=== PATIENT | female | born 1975 | race Hispanic/Latino ===

== ENCOUNTER 2016-11-19 04:34 | Emergency (ER) | payer SELFPAY ==
[2016-11-19 04:44] VITALS: BP 130/82
--- NOTE | 2016-11-19 05:11 | XRay Report ---
FINAL REPORT PROCEDURE: XR FOOT 2V LT TECHNIQUE: LEFT forearm radiographs, AP and lateral views. CPT 56983 HISTORY: left plantar foot pain COMPARISON: No prior studies are available for comparison. FINDINGS: Fracture (s) and/or Dislocation(s): None . Joint space(s): Normal . Soft tissues: Normal . Bone mineralization: Normal . Foreign bodies: None . IMPRESSION: Normal Examination
--- NOTE | 2016-11-19 07:57 | Emergency Department Report ---
Blank Doc - Documentation Documentation: When I entered the examination room the patient was not in the exam room. 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 As per respiratory therapist Sarah Miss Luque went home after her shift. I called the number listed under patient demographics and left a message requesting that Miss Luque will return to the ED to be clinically examined and for her x-ray results. I informed charge nurse Anahi of this scenario. Patient eloped before clinical examination.
== END 2016-11-19 07:20 | disposition left against medical advice (07) ==
LOC: ED 04:34
DX: M79.672 Pain in left foot (principal); Z53.21 Procedure and treatment not carried out due to patient leaving prior to being seen by health care provider

== ENCOUNTER 2017-06-02 07:50 | Outpatient (CLI) | payer BC ==
--- NOTE | 2017-06-02 15:41 | Mammography Report ---
BILATERAL DIGITAL SCREENING MAMMOGRAM with CAD: 06/02/17 07:50:00 CLINICAL: Routine screening. COMPARISON:None available. FINDINGS: The breasts are heterogeneously dense, which may obscure small masses. No mass, architectural distortion or suspicious calcifications. IMPRESSION: No mammographic evidence of malignancy. BI-RADS CATEGORY: 1 - - Negative RECOMMENDATION: Routine mammographic screening in one year. COMMENT: Patient follow-up letters are generated by our [employer] application.
== END 2017-06-02 07:51 | disposition home or self-care (01) ==
LOC: MAMMO 07:50
PROVIDERS: ATTEND Family Medicine
DX: Z12.31 Encounter for screening mammogram for malignant neoplasm of breast (principal)
CPT/HCPCS: 77067

== ENCOUNTER 2018-05-16 18:56 | Emergency (ER) | payer BC ==
[2018-05-16 19:12] VITALS: BP 118/66
--- NOTE | 2018-05-16 19:18 | Emergency Department Report ---
- General Chief Complaint: Upper Respiratory Infection Stated Complaint: FLU/POSS STREP Time Seen by Provider: 05/16/18 19:18 Source: patient Mode of arrival: Ambulatory Limitations: No Limitations - History of Present Illness Initial Comments: This is a 43-year-old female nontoxic, well nourished in appearance, no acute signs of distress presents to the ED with c/o of productive cough, fever, chills, body aches, rhinorrhea, nasal congestion x1 week. Patient describes productive cough as yellow mucus production. Patient stated that son has similar symptoms. Patient denies any recent travels, long car, recent hospital stays. Patient denies any calf pain or calf tenderness. Patient denies any chest pain, short of breath, fever, chills, nausea, vomiting, hemoptysis, num bness, tingling, headache or stiff neck. Patient stated allergies to Sulfa with no PMH. MD Complaint: cough, rhinorrhea, nasal congestion, other (body aches) -: week(s) (1) Severity: mild Severity scale (0 -10): 8 Quality: aching Consistency: constant Improves With: nothing Worsens With: nothing Associated Symptoms: denies other symptoms, rhinorrhea, nasal congestion, cough. denies: fever, chills, myalgias, diaphoresis, headache, sore throat, stiff neck, chest pain, abdominal pain, nausea, vomiting, diarrhea, dysuria, rash, confusion, right sweats, weight loss, epistaxis, hoarseness, ear pain Treatments Prior to Arrival: none - Related Data Previous Rx's Medication Instructions Recorded Last Taken Type Azithromycin [Zithromax Z-GERARDO] 250 mg PO DAILY #6 tablet 05/16/18 Unknown Rx Benzonatate [Tessalon Perle] 100 mg PO Q6H PRN #20 capsule 05/16/18 Unknown Rx Ibuprofen [Motrin] 600 mg PO Q8H PRN #20 tablet 05/16/18 Unknown Rx Prednisone [predniSONE 10 mg 10 mg PO .TAPER #1 tab.ds.pk 05/16/18 Unknown Rx (6-Day Pack, 21 Tabs)] Allergies Allergy/AdvReac Type Severity Reaction Status Date / Time Sulfa (Sulfonamide Allergy Headache Verified 11/19/16 04:45 Antibiotics) ED Review of Systems ROS: Stated complaint: FLU/POSS STREP Other details as noted in HPI Constitutional: denies: chills, fever Eyes: denies: eye pain, eye discharge, vision change ENT: congestion. denies: ear pain, throat pain Respiratory: cough. denies: shortness of breath, wheezing Cardiovascular: denies: chest pain, palpitations Endocrine: no symptoms reported Gastrointestinal: denies: abdominal pain, nausea, diarrhea Genitourinary: denies: urgency, dysuria, discharge Musculoskeletal: denies: back pain, joint swelling, arthralgia Skin: denies: rash, lesions Neurological: denies: headache, weakness, paresthesias Psychiatric: denies: anxiety, depression Hematological/Lymphatic: denies: easy bleeding, easy bruising ED Past Medical Hx - Past Medical History Previous Medical History?: No - Surgical History Past Surgical History?: No - Social History Smoking Status: Current Every Day Smoker Substance Use Type: None - Medications Home Medications: Home Medications Medication Instructions Recorded Confirmed Last Taken Type Azithromycin [Zithromax Z-GERARDO] 250 mg PO DAILY #6 tablet 05/16/18 Unknown Rx Benzonatate [Tessalon Perle] 100 mg PO Q6H PRN #20 capsule 05/16/18 Unknown Rx Ibuprofen [Motrin] 600 mg PO Q8H PRN #20 tablet 05/16/18 Unknown Rx Prednisone [predniSONE 10 mg 10 mg PO .TAPER #1 tab.ds.pk 05/16/18 Unknown Rx (6-Day Pack, 21 Tabs)] ED Physical Exam - General Limitations: No Limitations General appearance: alert, in no apparent distress - Head Head exam: Present: atraumatic, normocephalic - Eye Eye exam: Present: normal appearance - ENT ENT exam: Present: normal exam, normal orophraynx - Neck Neck exam: Present: normal inspection, full ROM. Absent: tenderness, meningismus - Respiratory Respiratory exam: Present: normal lung sounds bilaterally. Absent: respiratory distress, wheezes, rales, rhonchi, stridor, chest wall tenderness, accessory muscle use, decreased breath sounds, prolonged expiratory - Cardiovascular Cardiovascular Exam: Present: regular rate, normal rhythm, normal heart sounds. Absent: irregular rhythm, systolic murmur, diastolic murmur, rubs, gallop - Extremities Exam Extremities exam: Present: normal inspection, full ROM - Back Exam Back exam: Present: normal inspection, full ROM - Neurological Exam Neurological exam: Present: alert, oriented X3 - Psychiatric Psychiatric exam: Present: normal affect, normal mood - Skin Skin exam: Present: warm, dry, intact, normal color. Absent: rash ED Course Vital Signs 05/16/18 19:10 Temperature 98.3 F Pulse Rate 92 H Respiratory 18 Rate Blood Pressure 118/66 O2 Sat by Pulse 100 Oximetry - Reevaluation(s) Reevaluation #1: 05/16/18 20:11 Patient is speaking in full sentences with no signs of distress noted. ED Medical Decision Making - Medical Decision Making This is a 43-year-old female that presents with bronchitis. Patient is stable and was examined by me. Chest x-ray has been obtained and dictated by radiologist with normal exam. Patient is notified of x-ray results with no questions noted. Negative flu swab. Due to patient having symptoms of upper respiratory infection and worsening I will treat patient empirically with zpak. Patient was instructed to increase hydration, rest and take Motrin for fever episodes. Patient received motrin and tesslone perrls in the ED. Vitals stable. Patient is nonfebrile and normal heart rate. Patient was instructed Follow-up with a primary care doctor in 3-5 days or if symptoms worsen and continue return to emergency room as soon as possible. At time time of discharge, the patient does not seem toxic or ill in appearance. No acute signs of distress noted. Patient agrees to discharge treatment plan of care. No further questions noted by the patient. Critical care attestation.: If time is entered above; I have spent that time in minutes in the direct care of this critically ill patient, excluding procedure time. ED Disposition Clinical Impression: Bronchitis Disposition: [id number] TO HOME OR SELFCARE Is pt being admited?: No Does the pt Need Aspirin: No Condition: Stable Instructions: Acute Bronchitis (ED) Additional Instructions: Follow-up with a primary care doctor in 3-5 days or if symptoms worsen and continue return to emergency room as soon as possible. Prescriptions: Azithromycin [Zithromax Z-GERARDO] 250 mg PO DAILY #6 tablet Benzonatate [Tessalon Perle] 100 mg PO Q6H PRN #20 capsule PRN Reason: Cough Ibuprofen [Motrin] 600 mg PO Q8H PRN #20 tablet PRN Reason: Pain/fever Prednisone [predniSONE 10 mg (6-Day Pack, 21 Tabs)] 10 mg PO .TAPER #1 tab.ds.pk Referrals: PRIMARY CARE, [Primary Care Provider] - 3-5 Days COOPER STRONG MD [Staff Physician] - 3-[address] [facility] [Outside] - 3-5 Days [facility] [Outside] - 3-5 Days Forms: Work/School Release Form(ED)
[2018-05-16] MEDS ORDERED: TESSALON PERLES PO ONE (19:28)
[2018-05-16] MEDS ORDERED: MOTRIN PO ONE (19:28)
--- NOTE | 2018-05-16 21:36 | XRay Report ---
FINAL REPORT EXAM: XR CHEST ROUTINE 2V HISTORY: cough TECHNIQUE: Two view chest PA and lateral PRIORS: None. FINDINGS: Cardiac and mediastinal contours are unremarkable. No focal pulmonary infiltrate is identified. No pleural fluid collection seen. Pulmonary vasculature is unremarkable. IMPRESSION: Negative two-view chest
== END 2018-05-16 20:44 | disposition home or self-care (01) ==
LOC: ED 18:56
DX: J40 Bronchitis, not specified as acute or chronic (principal); F17.200 Nicotine dependence, unspecified, uncomplicated; Z88.2 Allergy status to sulfonamides
CPT/HCPCS: 71046; 87400; 99283

== ENCOUNTER 2019-02-24 19:32 | Emergency (ER) | payer OTHER, BC ==
--- NOTE | 2019-02-24 19:37 | Emergency Department Report ---
Blank Doc - Documentation Documentation: 43-year-old female that presents with right knee pain s/p injury at work. This initial assessment/diagnostic orders/clinical plan/treatment(s) is/are subject to change based on patient's health status, clinical progression and re- assessment by fellow clinical providers in the ED. Further treatment and workup at subsequent clinical providers discretion. Patient/guardians urged not to elope from the ED as their condition may be serious if not clinically assessed and managed. Initial orders include: 1- Patient sent to [facility] for further evaluation and treatment 2- xray of knee
[2019-02-24 19:43] VITALS: BP 132/66
[2019-02-24] MEDS ORDERED: IBUPROFEN 600 MG TAB PO ONE (19:54)
[2019-02-24] MEDS ORDERED: ACETAMINOPHEN 500 MG TAB PO ONE (19:54)
--- NOTE | 2019-02-24 21:10 | Emergency Department Report ---
ED Extremity Problem HPI - General Chief complaint: Extremity Injury, Lower Stated complaint: WORK RELATED INJURY RT KNEE Time Seen by Provider: 02/24/19 19:36 Source: patient Mode of arrival: Ambulatory Limitations: No Limitations - History of Present Illness Initial comments: Patient is a 43-year-old white female with no past medical history presents to the ED with complaint of acute onset persistent severe right knee pain after she twisted the right knee when pushing a computer cowel 3 days ago. Patient states that in the process of twisting she heard a "pop"sound. Patient states that since that incident her right knee pain is worsened especially in the last 3 days. Patient denies fall, traumatic injury, numbness and tingling or weakness of right leg, hip pain, dizziness, chest pain or shortness of breath. MD Complaint: extremity pain (right), joint swelling (right knee), joint paint (right knee) -: Sudden, days(s) (3) Location: right, lower extremity (right knee), knee -: Yes arthralgia Radiation: none Severity scale (0 -10): 8 Quality: aching, sharp Consistency: constant Improves with: rest Worsens with: weight bearing, walking, palpation Associated Symptoms: denies other symptoms - Related Data Previous Rx's Medication Instructions Recorded Last Taken Type Azithromycin [Zithromax Z-GERARDO] 250 mg PO DAILY #6 tablet 05/16/18 Unknown Rx Benzonatate [Tessalon Perle] 100 mg PO Q6H PRN #20 capsule 05/16/18 Unknown Rx Prednisone [predniSONE 10 mg 10 mg PO .TAPER #1 tab.ds.pk 05/16/18 Unknown Rx (6-Day Pack, 21 Tabs)] Ibuprofen [Motrin 600 MG tab] 600 mg PO Q8H PRN #20 tablet 02/24/19 Unknown Rx tiZANidine [Zanaflex 4mg TAB] 4 mg PO Q8H PRN #15 tablet 02/24/19 Unknown Rx Allergies Allergy/AdvReac Type Severity Reaction Status Date / Time Sulfa (Sulfonamide Allergy Headache Verified 11/19/16 04:45 Antibiotics) ED Review of Systems ROS: Stated complaint: WORK RELATED INJURY RT KNEE Other details as noted in HPI Constitutional: denies: chills, fever Eyes: denies: eye pain, eye discharge, vision change ENT: denies: ear pain, throat pain Respiratory: denies: cough, shortness of breath, wheezing Cardiovascular: denies: chest pain, palpitations Endocrine: no symptoms reported Gastrointestinal: denies: abdominal pain, nausea, diarrhea Genitourinary: denies: urgency, dysuria, discharge Musculoskeletal: arthralgia (right knee), myalgia. denies: back pain, joint swelling Skin: denies: rash, lesions Neurological: denies: headache, weakness, paresthesias Psychiatric: denies: anxiety, depression Hematological/Lymphatic: denies: easy bleeding, easy bruising ED Past Medical Hx - Past Medical History Previous Medical History?: No - Surgical History Past Surgical History?: No - Social History Smoking Status: Never Smoker Substance Use Type: Alcohol - Medications Home Medications: Home Medications Medication Instructions Recorded Confirmed Last Taken Type Azithromycin [Zithromax Z-GERARDO] 250 mg PO DAILY #6 tablet 05/16/18 Unknown Rx Benzonatate [Tessalon Perle] 100 mg PO Q6H PRN #20 capsule 05/16/18 Unknown Rx Prednisone [predniSONE 10 mg 10 mg PO .TAPER #1 tab.ds.pk 05/16/18 Unknown Rx (6-Day Pack, 21 Tabs)] Ibuprofen [Motrin 600 MG tab] 600 mg PO Q8H PRN #20 tablet 02/24/19 Unknown Rx tiZANidine [Zanaflex 4mg TAB] 4 mg PO Q8H PRN #15 tablet 02/24/19 Unknown Rx ED Physical Exam - General Limitations: No Limitations General appearance: alert, in no apparent distress - Head Head exam: Present: atraumatic, normocephalic, normal inspection - Eye Eye exam: Present: normal appearance, PERRL, EOMI Pupils: Present: normal accommodation - ENT ENT exam: Present: normal exam, normal orophraynx, mucous membranes moist, TM's normal bilaterally, normal external ear exam - Neck Neck exam: Present: normal inspection, full ROM - Respiratory Respiratory exam: Present: normal lung sounds bilaterally. Absent: respiratory distress, wheezes, chest wall tenderness, accessory muscle use, prolonged expiratory - Cardiovascular Cardiovascular Exam: Present: regular rate, normal rhythm, normal heart sounds. Absent: systolic murmur, diastolic murmur, rubs, gallop - GI/Abdominal GI/Abdominal exam: Present: soft, normal bowel sounds. Absent: tenderness, rebound - Extremities Exam Extremities exam: Present: normal inspection, tenderness (palpable right knee tenderness with mild swelling), normal capillary refill, joint swelling - Back Exam Back exam: Present: normal inspection, full ROM. Absent: tenderness, CVA tenderness (R), CVA tenderness (L), muscle spasm, paraspinal tenderness, vertebral tenderness - Neurological Exam Neurological exam: Present: alert, oriented X3, CN II-XII intact, normal gait, reflexes normal - Psychiatric Psychiatric exam: Present: normal affect, normal mood - Skin Skin exam: Present: warm, dry, intact, normal color. Absent: rash ED Course Vital Signs 02/24/19 19:36 Temperature 98.5 F Pulse Rate 88 Respiratory 14 Rate Blood Pressure 132/66 O2 Sat by Pulse 99 Oximetry - Reevaluation(s) Reevaluation #1: 02/24/19 21:13 This is a 43-year-old female who presented to the ED with right knee pain and swelling after twisting the right knee 3 days ago. In the ED, patient is alert and oriented 3, ambulatory but appears to be in pain. Right knee x-ray shows no acute fractures or subluxations. Patient's pain is likely due to ligament injury. Patient was treated for pain in the ED of the right knee was splinted with Radhames wrap. Patient was discharged home on pain medications and muscle rela xants and, and was advised to follow-up with her primary care physician in 3-5 days for reevaluation or return to the ED immediately if symptoms get worse. Patient was also advised to consider following up with the orthopedic surgeon Dr. Perez if her symptoms get worse. ED Medical Decision Making - Radiology Data Radiology results: report reviewed, image reviewed Right knee x-ray shows no acute fractures or subluxations. - Medical Decision Making This is a 43-year-old female who presented to the ED with right knee pain and swelling after twisting the right knee 3 days ago. In the ED, patient is alert and oriented 3, ambulatory but appears to be in pain. Right knee x-ray shows no acute fractures or subluxations. Patient's pain is likely due to ligament injury. Patient was treated for pain in the ED of the right knee was splinted with Radhames wrap. Patient was discharged home on pain medications and muscle relaxants and, and was advised to follow-up with her primary care physician in 3-5 days for reevaluation or return to the ED immediately if symptoms get worse. Patient was also advised to consider following up with the orthopedic surgeon Dr. Perez if her symptoms get worse. - Differential Diagnosis knee fracture; right knee sprain; knee ligament strain Critical care attestation.: If time is entered above; I have spent that time in minutes in the direct care of this critically ill patient, excluding procedure time. ED Disposition Clinical Impression: Sprain of right knee Qualifiers: Encounter type: initial encounter Involved ligament of knee: unspecified ligament Qualified Code(s): S83.91XA - Sprain of unspecified site of right knee, initial encounter Muscle strain of right knee Qualifiers: Encounter type: initial encounter Qualified Code(s): S86.911A - Strain of unspecified muscle(s) and tendon(s) at lower leg level, right leg, initial encounter Disposition: TO HOME OR SELFCARE Is pt being admited?: No Does the pt Need Aspirin: No Condition: Stable Instructions: Muscle Strain (ED), Knee Sprain (ED) Additional Instructions: Take medications with food, drink plenty of fluids and follow-up with your primary care physician in 7-10 days for reevaluation. Return to the ED immediately if symptoms get worse. Consider following up with the orthopedic surgeon Dr. Perez if symptoms get worse. Prescriptions: Ibuprofen [Motrin 600 MG tab] 600 mg PO Q8H PRN #20 tablet PRN Reason: Pain/fever tiZANidine [Zanaflex 4mg TAB] 4 mg PO Q8H PRN #15 tablet PRN Reason: Muscle Spasm Referrals: JAYLEEN LINDSEY MD [Primary Care Provider] - 3-5 Days PATRICIA PEREZ MD [Staff Physician] - 3-5 Days Time of Disposition: 21:05 Print Language: BELARUSIAN
--- NOTE | 2019-02-24 21:22 | XRay Report ---
RIGHT KNEE 3 VIEWS INDICATION / CLINICAL INFORMATION: knee pain. COMPARISON: None available. FINDINGS: No fracture, dislocation or right knee effusion is present. Signer Name: Evan Washington MD Signed: 02/24/2019 9:18 PM Workstation Name: [id number]
== END 2019-02-24 21:32 | disposition home or self-care (01) ==
LOC: ED 19:32
DX: S83.91XA Sprain of unspecified site of right knee, initial encounter (principal); Z79.899 Other long term (current) drug therapy; Z88.2 Allergy status to sulfonamides; X58.XXXA Exposure to other specified factors, initial encounter; Y93.89 Activity, other specified; Y92.89 Other specified places as the place of occurrence of the external cause; Y99.8 Other external cause status
CPT/HCPCS: 99283

== ENCOUNTER 2020-04-03 14:47 | Outpatient (CLI) | payer BC ==
[2020-04-03 15:14] LABS: Basophils % (Auto) 0.5 % (0.0-1.8); Eosinophils # (Auto) 0.2 K/mm3 (0.0-0.4); Hemoglobin 13.3 gm/dl (10.1-14.3); Lymphocytes # (Auto) 1.9 K/mm3 (1.2-5.4); Lymphocytes % (Auto) 21.4 % (13.4-35.0); Mean Corpuscular HGB Conc 33 % (30-34); Mean Corpuscular Volume 92 fl (79-97); Monocytes # (Auto) 0.8 K/mm3 (0.0-0.8); Monocytes % (Auto) 8.5 % (0.0-7.3); Platelet Count 274 K/mm3 (140-440); Red Blood Count 4.37 M/mm3 (3.65-5.03); Red Cell Distribution Width 12.6 % (13.2-15.2)
== END 2020-04-03 14:48 | disposition home or self-care (01) ==
LOC: LAB 14:47
PROVIDERS: ATTEND Obstetrics & Gynecology
DX: N92.0 Excessive and frequent menstruation with regular cycle (principal)
CPT/HCPCS: 36415; 82670; 83001; 84146; 84402; 84443; 85025

== ENCOUNTER 2020-05-01 06:08 | Day surgery (SDC) | payer BC ==
[2020-04-27 08:52] LABS: Hematocrit 38.6 % (30.3-42.9); Hemoglobin 13.4 gm/dl (10.1-14.3); Mean Corpuscular HGB Conc 35 % (30-34); Mean Corpuscular Volume 91 fl (79-97); Platelet Count 236 K/mm3 (140-440); Red Blood Count 4.26 M/mm3 (3.65-5.03); Red Cell Distribution Width 12.9 % (13.2-15.2)
[2020-04-27 09:15] LABS: Blood Urea Nitrogen 10 mg/dL (7-17); Calcium 9.5 mg/dL (8.4-10.2); Hemolysis Index 10
[2020-04-27 09:18] LABS: BUN/Creatinine Ratio 14
--- NOTE | 2020-04-30 03:11 | History and Physical Report ---
History of Present Illness Date of examination: 04/28/20 History of present illness: Patient has been reassessed/reevaluated. H&P has been reviewed. No interval changes. This is a 44 years old who. presents with menstrual disorder. The symptoms began 6-12 months ago. He complains of heavy bleeding, dysmenorrhea, clotting and cramping, but denies irregular menses, mid-cycle spotting, lack of menses, history of ovarian cysts, history of thyroid disease, history of fibroids, history of PCOS, history of bleeding disorder, lightheadedness and fatigue. Menses started at age 13. Interval between menses is 28 days and 30 days. Menstrual flow lasts 7 days. Patient reports that for pain she uses ibuprofen. Patient's work up has included hysterosonogram with a benign endometrial biopsy and revealed intracavity mass possible leiomyoma Vital Signs: Patient Profile: 45 Years Old Female LMP: 04/05/2020 Height: 62 inches Weight: 145 pounds BMI: 26.52 Temp: 97.7 degrees F BP sittin / 70 (left arm) Menstrual History: LMP (date): 04/05/2020 Current Method of Contraception: None Date of Last Pap Smear: 03/31/2020 Past History : 5 Term Births: 4 Premature Births: 0 Living Children: 4 Para: 4 Mult. Births: 0 Prev : 0 Aborta: 1 Elect. Ab: 0 Spont. Ab: 1 Ectopics: 0 VAT OPERATOR History Operations: bladder surgery 4-5yo Abnormal PAP: positive Uterine Anomaly: positive Infection History HIV Risk Eval: no Personal hx. of genital herpes: no Hx of STD: None Current Allergies (reviewed today): * SULFA (Critical) Past Medical History: Allergies-seasonal Past Surgical History: bladder surgery 4-5yo Family History Summary: Other Family Member - Has Family History Breast Cancer - Entered On: 03/31/2020 Other Family Member - Has Family History of Diabetes - Entered On: 03/31/2020 General Comments - FH: Protiens Deficiency Social History: Marital Status: Children: 4 Occupation: Respiratory at [employer] Smoking History: Patient has never smoked. Risk Factors: Smoked Tobacco Use: Never smoker Smokeless Tobacco Use: Never Passive smoke exposure: no Drug use: no HIV high-risk behavior: no Caffeine use: 2 drinks per day Alcohol use: yes Type: OCC Exercise: yes Times per week: 4 Seatbelt use: 100 % PAP Smear History: Date of Last PAP Smear: 03/31/2020 Review of Systems General Complains of fatigue. Denies fever, chills, sweats, anorexia, weakness, malaise, weight loss and sleep disorder. Complains of menorrhagia and painful periods. Denies vaginal discharge, incontinence, dysuria, hematuria, urinary frequency, amenorrhea, abnormal vaginal bleeding, pelvic pain, genital sores, decreased libido, painful sex, urinary urgency, hot flashes, vaginal dryness, vaginal itching and vaginal odor. CV Denies chest pains, palpitations, syncope, dyspnea on exertion, orthopnea, PND and peripheral edema. Resp Denies cough, dyspnea at rest, excessive sputum, hemoptysis, wheezing and pleurisy. GI Denies nausea, vomiting, diarrhea, constipation, change in bowel habits, abdominal pain, melena, hematochezia, jaundice, gas/bloating, indigestion/heartburn, dysphagia and odynophagia. Breast Denies left breast lump, right breast lump, nipple discharge, bloody discharge from nipple, breast pain, abnormal mammogram and breast enlargement. Psych Denies depression, anxiety, irritability and mood swings. Past History Past Medical History: other (SEE HPI FOR DETAILS) Past Surgical History: Other (SEE HPI FOR DETAILS) Social history: full code, other (SEE HPI FOR DETAILS) Family history: other (SEE HPI FOR DETAILS) Medications and Allergies Allergies Allergy/AdvReac Type Severity Reaction Status Date / Time Sulfa (Sulfonamide Allergy Hives Verified 04/24/20 13:02 Antibiotics) Home Medications Medication Instructions Recorded Confirmed Last Taken Type Cetirizine HCl [Zyrtec 10mg tab] 10 mg PO DAILY 04/24/20 04/24/20 Unknown History Multivitamin [Daily Multiple 1 each PO DAILY 04/24/20 04/24/20 Unknown History Vitamin] Pseudoephedrine HCl [Sudafed] 30 mg PO Q12H PRN 04/24/20 04/24/20 Unknown History Review of Systems Constitutional: other (SEE HPI FOR DETAILS) Exam - Physical Exam Narrative exam: HEENT: normocephalic, no lesions or deformities Skin no significant abnormal lesions or rashes Chest: respiratory effort normal, clear to auscultation CV: regular, normal S1-S2, no murmur, no rub, no gallop Abdomen: normal bowel sounds, soft, nontender, no HSM Neuro: no gross anomalities Extremities: no clubbing, cyanosis, or edema VAT OPERATOR Exams Vulva/Vagina: No lesions, normal BUS, normal rugae Cervix: No lesions; no cervical motion tenderness Uterus: enlarged uterus 8 - 10 weeks size Adnexae: no masses or tenderness Rectovaginal: exam defered - Constitutional Vitals: Temp Pulse Resp BP Pulse Ox 98.2 F 80 20 119/66 99 04/27/20 08:40 04/27/20 08:40 04/27/20 08:40 04/27/20 08:40 04/27/20 08:40 Results - Labs CBC & Chem 7: 04/27/20 08:40 04/27/20 08:40 Assessment and Plan - Patient Problems (1) Submucous leiomyoma of uterus Current Visit: No Status: Acute Plan to address problem: Diagnosis explained to patient . Questions answered. Discussed with patient various medical, surgical and radiological therapies common for treatment including expectant management, myomectomy hysterectomy and uterine artery embolization Patient desires least invasive procedure Patient desires hysteroscopic myomectomy with endometrial ablation. Indications for and description of the hysteroscopy given. .Discussed risk of surgery including infection, bleeding and risk of perforating her uterus. Questions answered. Patient understands and desires to proceed (2) Menorrhagia Current Visit: No Status: Acute Qualifiers: Menorrhagia type: with regular cycle Qualified Code(s): N92.0 - Excessive and frequent menstruation with regular cycle Plan to address problem: Diagnosis explained to patient . Questions answered. Probably secondary to # 1. Patient's symptoms when present disrupts her normal daily activities Patient desires definitive treatment Patient desires definitive treatment Patient desire endometrial ablation. She understands that this procedure only treats bleeding and is not a treatment for dysmenorrhea or myomas. Patient understands and desires to proceed. (3) Dysmenorrhea Current Visit: No Status: Acute
[~2020-05-01 06:08] MED LIST: LACTATED RINGERS 1,000 ML IV SCH; MIDAZOLAM 2 MG/2 ML INJ IV NR
--- NOTE | 2020-05-01 07:19 | Anesthesia Consultation ---
Anesthesia Consult and Med Hx Date of service: 05/01/20 - Airway Anesthetic Teeth Evaluation: Good ROM Head & Neck: Adequate Mental/Hyoid Distance: Adequate Mallampati Class: Class II Intubation Access Assessment: Probably Good - Pulmonary Exam CTA: Yes - Cardiac Exam Cardiac Exam: RRR - Pre-Operative Health Status ASA Pre-Surgery Classification: ASA1 Proposed Anesthetic Plan: General - Pulmonary Hx Smoking: No Hx Respiratory Symptoms: No - Cardiovascular System Hx Hypertension: No - Central Nervous System CVA: No - Endocrine Hx Renal Disease: No Hx Liver Disease: No Hx Insulin Dependent Diabetes: No Hx Non-Insulin Dependent Diabetes: No Hx Thyroid Disease: No - Other Systems Hx Obesity: No - Additional Comments Anesthesia Medical History Comments: No hx anesthetic complications.
--- NOTE | 2020-05-01 07:19 | Anesthesia Day of Surgery ---
Anesthesia Day of Surgery - Day of Surgery Patient Examined: Yes Patient H&P Reviewed: Yes Patient is NPO: Yes
[2020-05-01] MEDS ORDERED: fentaNYL 100 MCG/2 ML INJ IV PRN (07:30)
[2020-05-01] MEDS ORDERED: LIDOCAINE MPF (2%) 20 MG/1 ML VIAL 5 ML ONE (07:32)
[2020-05-01] MEDS ORDERED: GLYCOPYRROLATE 0.4 MG/2 ML INJ ONE (07:32)
[2020-05-01] MEDS ORDERED: MIDAZOLAM 2 MG/2 ML INJ ONE (07:32)
[2020-05-01] MEDS ORDERED: propofoL 200 MG/20 ML VIAL IV ONE (07:33)
[2020-05-01] MEDS ORDERED: ONDANSETRON 4 MG/2 ML INJ IV PRN (08:00)
[2020-05-01] MEDS ORDERED: ePHEDrine SULFATE 50 MG/1 ML INJ ONE (08:10)
[2020-05-01] MEDS ORDERED: dexAMETHasone 20 MG/5 ML VIAL ONE (08:18)
[2020-05-01] MEDS ORDERED: KETOROLAC 30 MG/1 ML INJ ONE ×2 (08:18→08:23)
[2020-05-01] MEDS ORDERED: ONDANSETRON 4 MG/2 ML INJ ONE (08:30)
[2020-05-01] MEDS ORDERED: SODIUM CHLORIDE 0.9% IRRIG SOLN 2000 ML IR ONE (08:36)
[2020-05-01] MEDS ORDERED: HYDROmorphone 1 MG/1 ML INJ ONE (08:39)
[2020-05-01] MEDS ORDERED: fentaNYL 100 MCG/2 ML INJ ONE (08:44)
--- NOTE | 2020-05-01 09:04 | Operative Report ---
Operative Report Operative Report: Date of procedure: May 01, 2020 Pre-operative diagnosis: Intracavitary uterine mass Post-operative diagnosis: Same Procedure name(s): Operative hysteroscopy with MyoSure Surgeon: Maury Wilkins MD Generator Repairer: [] Anesthesia: Gen. EBL: Minimal Complications: None Findings: Patient with a uterine mass approximately 2 cm in diameter both tubal ostium seen thickened endometrium seen throughout the cavity Specimen(s): Uterine mass Procedure: Patient was brought into the operating room, where general anesthesia was induced without any difficulty. Patient was placed in dorsal lithotomy position. Prep and drape in the usual sterile manner. Timeout procedure was performed. The patient's bladder was emptied with a red rubber catheter. Speculum was placed in the vagina. Tenaculum was placed at 12:00 on the cervix. The cervical os was dilated to a 19 Kosovan diameter. The hysteroscope was placed and the findings noted above. The MyoSure device was primed. The device was placed through the cervical os. The mass was then removed using the MyoSure. The mass was completely removed with no evidence of puncture on the uterine wall. All instruments were then removed. Speculum was replaced. The mild sure sound was then placed with measurement of the uterine cavity left of the 5.5 cm. The NovaSure was then placed through the cervical os the uterine width was then measured at the 4.5 cm. After passing the testing for cavity integrity test, the NovaSure ablation was then started. The power setting was at 136 and the procedure lasted 84 seconds. The NovaSure applicator was then removed. There was large amount of tissue on the NovaSure. Post procedure hysteroscopy showed a complete cavity ablation. Our instruments are removed. The patient tolerated the procedure well and was awakened in the operating room. Accompanied to recovery in good condition.
--- NOTE | 2020-05-01 09:08 | Short Stay Summary ---
Short Stay Documentation Date of service: 05/01/20 - History Past Medical History: other (SEE HPI FOR DETAILS) Past Surgical History: Other (SEE HPI FOR DETAILS) Social history: full code, other (SEE HPI FOR DETAILS) - Allergies and Medications Current Medications: Allergies Sulfa (Sulfonamide Antibiotics) Allergy (Verified 04/24/20 13:02) Hives Home Medications Medication Instructions Recorded Confirmed Last Taken Type Cetirizine HCl [Zyrtec 10mg tab] 10 mg PO DAILY 04/24/20 05/01/20 04/30/20 05:00 History Multivitamin [Daily Multiple 1 each PO DAILY 04/24/20 05/01/20 04/30/20 09:00 History Vitamin] Pseudoephedrine HCl [Sudafed] 30 mg PO Q12H PRN 04/24/20 04/24/20 Unknown History RX: DOXYCYCLINE Hyclate 100 mg PO Q12HR #14 capsule 05/01/20 Unknown Rx [Vibramycin CAP] RX: Ibuprofen [Motrin 800 MG tab] 800 mg PO Q6H PRN #30 tablet 05/01/20 Unknown Rx Active Medications Fentanyl (Fentanyl 100 Mcg/2 Ml Inj) 50 mcg IV Q5MIN PRN PRN Reason: Pain , Severe (7-10) Stop: 05/01/20 17:00 Lactated Ringer's (Lactated Ringers) 1,000 mls @ 100 mls/hr IV DIRECT JORDON Stop: 05/01/20 23:59 Last Admin: 05/01/20 06:50 Dose: 100 mls/hr Documented by: Midazolam HCl (Midazolam 2 Mg/2 Ml Inj) 2 mg IV PREOP NR Stop: 05/01/20 21:00 Ondansetron HCl (Ondansetron 4 Mg/2 Ml Inj) 4 mg IV ONCE PRN PRN Reason: Nausea And Vomiting - Physical exam General appearance: no acute distress Integumentary: no rash HEENT: Atraumatic Lungs: Normal air movement Breasts: deferred Heart: Regular rate Gastrointestinal: normal Female Genitourinary: normal Rectal Exam: deferred Extremities: no ischemia, pulses intact Neurological: Normal speech, Normal tone - Brief post op/procedure progress note Date of procedure: 05/01/20 (See dictated operative note) Procedure: Hysteroscopic myomectomy with MyoSure and endometrial ablation with NovaSure - Hospital course Hospital course: Patient was admitted underwent the above him procedure without any complications. Patient will be discharged with follow-up in office in 1-2 weeks for postop check. - Disposition Condition at discharge: Good Disposition: DC-01 TO HOME OR SELFCARE - Discharge Diagnoses (1) Submucous leiomyoma of uterus Status: Acute (2) Menorrhagia Status: Acute Qualifiers: Menorrhagia type: with regular cycle Qualified Code(s): N92.0 - Excessive and frequent menstruation with regular cycle (3) Dysmenorrhea Status: Acute Short Stay Discharge Plan Activity: no restrictions Diet: regular Additional Instructions: Patient to call office for any fever, chills, nausea, vomiting or pain not controlled by pain medication. Follow up with: PRIMARY CARE, [Primary Care Provider] - 7 Days Forms: Outpatient Surgery DC Inst. Prescriptions: RX: Ibuprofen [Motrin 800 MG tab] 800 mg PO Q6H PRN #30 tablet PRN Reason: Pain RX: DOXYCYCLINE Hyclate [Vibramycin CAP] 100 mg PO Q12HR #14 capsule
[2020-05-01 09:16] VITALS: BP 117/50
--- NOTE | 2020-05-01 13:23 | Post Anesthesia Evaluation ---
- Post Anesthesia Evaluation Patient Participated: Yes Airway Patent: Yes Stable Respiratory Function: Yes Nausea/Vomiting: No Temp > 96.8F: Yes Pain Manageable: Yes Adequeate Hydration: Yes Anesthesia Complications: No
== END 2020-05-01 06:09 | disposition home or self-care (01) ==
LOC: OR 06:08
PROVIDERS: ATTEND Obstetrics & Gynecology
DX: N85.8 Other specified noninflammatory disorders of uterus (principal); Z20.828 Contact with and (suspected) exposure to other viral communicable diseases; N92.0 Excessive and frequent menstruation with regular cycle; D25.0 Submucous leiomyoma of uterus; G43.909 Migraine, unspecified, not intractable, without status migrainosus; Z88.2 Allergy status to sulfonamides; Z79.899 Other long term (current) drug therapy; Z72.89 Other problems related to lifestyle; Z98.890 Other specified postprocedural states
CPT/HCPCS: 36415; 58563; 80048; 84703; 85027; 88305; A4217; C1782; J1100; J1170; J1885; J2250; J2405; J2704; J3010; J7120; U0003

== ENCOUNTER 2021-05-07 18:00 | Emergency (ER) | payer OTHER, BC ==
[2021-05-07 18:05] VITALS: BP 131/82
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
== END 2021-05-07 19:00 | disposition home or self-care (01) ==
LOC: ED 18:00
DX: M54.2 Cervicalgia (principal); M54.50 Low back pain, unspecified; M79.601 Pain in right arm; G43.909 Migraine, unspecified, not intractable, without status migrainosus; Z88.1 Allergy status to other antibiotic agents; Y08.89XA Assault by other specified means, initial encounter; Y93.89 Activity, other specified; Y92.89 Other specified places as the place of occurrence of the external cause; Y99.8 Other external cause status
CPT/HCPCS: 72040; 99283